=== PATIENT | female | born 1990 | race African-American/Black ===

== ENCOUNTER 2018-08-12 12:07 | Emergency (ER) | payer OTHER ==
[~2018-08-12] VITALS: Ht 170.2 cm; Wt 62.6 kg
[2018-08-12 12:33] LABS: URINE BILIRUBIN NEGATIVE (Negative); URINE BLOOD NEGATIVE (Negative); URINE CLARITY CLEAR; URINE COLOR YELLOW; URINE GLUCOSE-RANDOM* NEGATIVE (Negative); URINE KETONES NEGATIVE (Negative); URINE LEUKOCYTES 1+ (Negative); URINE NITRITE NEGATIVE (Negative); URINE PROTEIN (DIPSTICK) NEGATIVE (Negative); URINE SPECIFIC GRAVITY 1.025 (1.005-1.035); URINE UROBILINOGEN 0.2 E.U./dl (0.2-1.0)
[2018-08-12 12:54] LABS: BACTERIA 1-9 Few /HPF (None Seen); CASTS None Seen /LPF (None Seen); CRYSTALS None Seen /LPF (None Seen); SQUAMOUS 0-3 Few /LPF (0-3); URINE RBC 0-2 Rare /HPF (0-2); URINE WBC 6-15 Few /HPF (0-5)
[2018-08-12] MEDS ORDERED: KEFLEX500 M1 PO (16:19)
== END 2018-08-12 13:01 | disposition home or self-care (01) ==
LOC: ER 12:07
PROVIDERS: Emergency Medicine
DX: R30.0 Dysuria (principal); Z53.21 Procedure and treatment not carried out due to patient leaving prior to being seen by health care provider

== ENCOUNTER 2018-08-12 15:49 | Emergency (ER) | payer OTHER ==
[~2018-08-12] VITALS: Ht 170.2 cm; Wt 62.6 kg
[2018-08-12 15:52] VITALS: BP 99/62
[2018-08-12] MEDS ORDERED: KEFLEX500 M1 PO (16:19)
== END 2018-08-12 16:20 | disposition home or self-care (01) ==
LOC: ER 15:49
DX: N39.0 Urinary tract infection, site not specified (principal)

== ENCOUNTER 2018-08-19 11:14 | Emergency (ER) | payer OTHER ==
[~2018-08-19] VITALS: Ht 170.2 cm; Wt 62.6 kg
[~2018-08-19 11:14] MED LIST: KEFLEX500 M1 PO
[2018-08-19 11:40] LABS: URINE BILIRUBIN NEGATIVE (Negative); URINE BLOOD 1+ (Negative); URINE CLARITY CLOUDY; URINE COLOR YELLOW; URINE GLUCOSE-RANDOM* NEGATIVE (Negative); URINE KETONES NEGATIVE (Negative); URINE LEUKOCYTES-REFLEX 3+ (Negative); URINE NITRITE-REFLEX NEGATIVE (Negative); URINE PROTEIN (DIPSTICK) NEGATIVE (Negative); URINE UROBILINOGEN 0.2 E.U./dl (0.2-1.0)
[2018-08-19 11:50] LABS: SQUAMOUS >10 Many /LPF (0-3)
[2018-08-19 11:51] LABS: CASTS None Seen /LPF (None Seen); CRYSTALS None Seen /LPF (None Seen); URINE WBC-REFLEX >25 Many /HPF (0-5)
[2018-08-19 11:53] LABS: URINE RBC 3-10 Few /HPF (0-2)
[2018-08-19] MEDS ORDERED: MACROBID 100 M100 M2 PO (12:52)
[2018-08-19 12:56] VITALS: BP 96/62
== END 2018-08-19 12:56 | disposition home or self-care (01) ==
LOC: ER 11:14
PROVIDERS: Nurse Practitioner
DX: N30.01 Acute cystitis with hematuria (principal)